=== PATIENT | female | born 1935 | race Two or more races ===

== ENCOUNTER 2021-10-15 06:30 | Inpatient (IN) | payer OTHER ==
[~2021-10-15] VITALS: Ht 160 cm; Wt 49.9 kg
[2021-10-15] MEDS ORDERED: LEVO-T100 MCG PO (17:42)
[2021-10-15] MEDS ORDERED: CARAFATE1 GM PO (17:43)
[2021-10-15] MEDS ORDERED: FOLIC ACID0.8 M1 PO (17:43)
[2021-10-15] MEDS ORDERED: VITAMIN B122500 MCG PO (17:44)
[2021-10-15] MEDS ORDERED: FISH OIL 1,2001 EAC1 PO (17:45)
[2021-10-15] MEDS ORDERED: BUSPIRONE HCL15 MG PO (17:45)
[2021-10-15] MEDS ORDERED: ZOCOR20 MG PO (17:46)
[2021-10-15] MEDS ORDERED: ZOLOFT100 MG PO (17:46)
[2021-10-15] MEDS ORDERED: XANAX XR0.5 MG PO (17:47)
[2021-10-26] MEDS ORDERED: PROTEINEX-18 LI30 ML PO (13:18)
[2021-10-26] MEDS ORDERED: FOLIC ACID1 MG PO (13:18)
[2021-10-26] MEDS ORDERED: INTEGRA PLUS C1 EACH PO (13:18)
[2021-10-26] MEDS ORDERED: SIMVASTATIN20 MG PO (13:18)
[2021-10-26] MEDS ORDERED: SERTRALINE HCL100 MG PO (13:18)
[2021-10-26] MEDS ORDERED: BUSPIRONE HCL15 MG PO (13:18)
[2021-10-26] MEDS ORDERED: SYNTHROID100 MCG PO (13:18)
[2021-10-26] MEDS ORDERED: PEPCID AC20 MG PO (13:18)
[2021-10-26] MEDS ORDERED: CARAFATE1 GM PO (13:18)
[2021-10-26] MEDS ORDERED: Neurin-Sl Tablet Sl SL (13:18)
== END 2021-10-26 15:17 | disposition home or self-care (01) | DRG 811 ==
LOC: ER 06:30 → EDBD 17:44 → MEDJ 17:44
PROVIDERS: ADMIT Internal Medicine; ATTEND Internal Medicine
PROC: 30233N1 Transfusion of Nonautologous Red Blood Cells into Peripheral Vein, Percutaneous Approach (ICD-10-PCS; 2021-10-15)
PROC: B246ZZZ Ultrasonography of Right and Left Heart (ICD-10-PCS; 2021-10-15)
PROC: 3E0F7SF Introduction of Other Gas into Respiratory Tract, Via Natural or Artificial Opening (ICD-10-PCS; 2021-10-15)
PROC: BW21YZZ Computerized Tomography (CT Scan) of Abdomen and Pelvis using Other Contrast (ICD-10-PCS; 2021-10-18)
PROC: BW24YZZ Computerized Tomography (CT Scan) of Chest and Abdomen using Other Contrast (ICD-10-PCS; 2021-10-18)
PROC: 02HV33Z Insertion of Infusion Device into Superior Vena Cava, Percutaneous Approach (ICD-10-PCS; 2021-10-20)
PROC: 0DBP8ZX Excision of Rectum, Via Natural or Artificial Opening Endoscopic, Diagnostic (ICD-10-PCS; principal; 2021-10-23)
PROC: B54PZZZ Ultrasonography of Bilateral Upper Extremity Veins (ICD-10-PCS; 2021-10-23)
DX: D50.0 Iron deficiency anemia secondary to blood loss (chronic) (principal); C21.8 Malignant neoplasm of overlapping sites of rectum, anus and anal canal; K57.31 Diverticulosis of large intestine without perforation or abscess with bleeding; I80.8 Phlebitis and thrombophlebitis of other sites; M41.85 Other forms of scoliosis, thoracolumbar region; G30.8 Other Alzheimer's disease; F02.80 Dementia in other diseases classified elsewhere, unspecified severity, without behavioral disturbance, psychotic disturbance, mood disturbance, and anxiety; E03.9 Hypothyroidism, unspecified; Z74.01 Bed confinement status